=== PATIENT | female | born 1950 | race Caucasian/White ===

== ENCOUNTER 2016-10-01 14:00 | Outpatient (CLI) | payer BC | END 2016-10-01 18:10 | disposition home or self-care (01) | LOC: SMA 14:00 | PROVIDERS: ATTEND Obstetrics & Gynecology Gynecology | DX: R92.1 Mammographic calcification found on diagnostic imaging of breast (principal) | CPT/HCPCS: 77051; G0206 ==

== ENCOUNTER 2017-02-02 22:10 | Emergency (ER) | payer BC, OTHER ==
[~2017-02-02] VITALS: Ht 165.1 cm; Wt 57.6 kg
[2017-02-02 22:10] VITALS: BP_SYST 134
--- NOTE | 2017-02-02 22:10 | NUR ---
PT IN WAITING ROOM AWAITING AVAILABLE BED. STABLE.
--- NOTE | 2017-02-02 23:42 | NUR ---
Patient to ER bed 4 to gown for evaluation. Side rails up. Report given to ARIAN ALONZO.
--- NOTE | 2017-02-02 23:50 | NUR ---
Pt brought in by friend in stable condition. Pt stated that she was bit by a stray cat on left index finger. Pt stated that she is worried about severe infection. Pt stated that she spoke w/ her vet and was advised to come to the ER to get wound checked out. Pt present w/ a 1/2 cm superficial cut to left index finger, no punture noted. No acute distress noted at this time, will continue to monitor
--- NOTE | 2017-02-03 00:04 | NUR ---
ER at bedside examining patient.
[2017-02-03 00:12] VITALS: BP_SYST 134
--- NOTE | 2017-02-03 00:12 | NUR ---
Patient given written and verbal discharge instructions and verbalizes understanding. ER MD FORMAN discussed with patient the results and treatment provided. Patient in stable condition. ID arm band removed. Rx of AUGMENTIN given. Patient educated on pain management and to follow up with PMD. Pain Scale 2/10. Opportunity for questions provided and answered.
== END 2017-02-03 00:12 | disposition home or self-care (01) ==
LOC: SED 22:10
DX: S61.251A Open bite of left index finger without damage to nail, initial encounter (principal); Z88.0 Allergy status to penicillin; Z88.5 Allergy status to narcotic agent; W55.01XA Bitten by cat, initial encounter; Y93.89 Activity, other specified; Y92.89 Other specified places as the place of occurrence of the external cause; Y99.8 Other external cause status
CPT/HCPCS: 99283

== ENCOUNTER 2017-02-04 18:52 | Emergency (ER) | payer BC, OTHER ==
[~2017-02-04] VITALS: Ht 165.1 cm; Wt 62.1 kg
[2017-02-04 18:57] VITALS: BP_SYST 135
--- NOTE | 2017-02-04 19:05 | NUR ---
Patient placed to bed. Report recieved from Charles ALONZO. Will assume care at this time.
--- NOTE | 2017-02-04 19:10 | NUR ---
Patient arrived to ED a/o x 4 with c/o ABD pain x 3 day. Patient reports being seen in ED for similar problem and was treated with ABX. Patient discontinued at home ABX because she began to experience nausea as a side effect. Patient reports lower ABD pain 6/10 that has not been relieved. Patient presents with a small 2mm cat bite present to the left second finger. Does not appear in immediate distress at this time. Will continue to monitor.
--- NOTE | 2017-02-04 19:11 | NUR ---
ED FOOD SCIENTIST Mcleod at bedside for medical evaluation.
[2017-02-04] MEDS ORDERED: ONDANSETRON HCL 4 MG/2 ML VIAL IVP ONE (19:45)
[2017-02-04] MEDS ORDERED: NACL 0.9% 1,000 ML IV ONE (19:45)
[2017-02-04] MEDS ORDERED: ONDANSETRON HCL 4 MG/2 ML VIAL ONE (19:56)
[2017-02-04] MEDS ORDERED: cefTRIAXone 1 GM IVPB PREMIX 0 ML IV ONE (19:56)
[2017-02-04 19:59] LABS: BILIRUBIN,URINE NEGATIVE (NEGATIVE); BLOOD, URINE 2+ (NEGATIVE); CLARITY/URINE HAZY (CLEAR); COLOR,URINE YELLOW (YELLOW); GLUCOSE,URINE NEGATIVE (NEGATIVE); KETONES,URINE TRACE (NEGATIVE); LEUKOCYTE ESTERASE ,URINE 1+ (NEGATIVE); NITRITE, URINE NEGATIVE (NEGATIVE); PROTEIN URINE NEGATIVE (NEGATIVE); UROBILINOGEN,URINE 0.2 (0.2-1.0)
--- NOTE | 2017-02-04 20:00 | NUR ---
Patient resting quietly. No acute distress noted. Vital signs within normal range.
--- NOTE | 2017-02-04 20:30 | NUR ---
ED GENERAL [employer]ARD SUPERVISOR M[facility]od at bedside for reassessment.
[2017-02-04 21:01] LABS: BACTERIA,URINE MODERATE /HPF (None Seen); MUCUS,URINE 2+ /LPF (None Seen); WBC,URINE 20-50 /HPF (0-3)
[2017-02-04 21:04] VITALS: BP_SYST 128
--- NOTE | 2017-02-04 21:04 | NUR ---
Patient given written and verbal discharge instructions and verbalizes understanding. ER MD discussed with patient the results and treatment provided. Patient in stable condition. ID arm band removed. IV catheter removed intact and dressing applied, no active bleeding. Rx of bactrim, pyridium and zofran given. Patient educated on pain management and to follow up with PMD. Pain Scale 2/10 tolerable for patient. Opportunity for questions provided and answered.
== END 2017-02-04 21:04 | disposition home or self-care (01) ==
LOC: SED 18:52
DX: N39.0 Urinary tract infection, site not specified (principal); S61.251D Open bite of left index finger without damage to nail, subsequent encounter; Z88.5 Allergy status to narcotic agent; Z88.0 Allergy status to penicillin; W55.01XD Bitten by cat, subsequent encounter
CPT/HCPCS: 36415; 81000; 87040; 87086; 96361; 96374; 99284; J2405; J7030; J0696

== ENCOUNTER 2018-03-23 14:56 | Outpatient (CLI) | payer BC, OTHER | END 2018-03-23 19:23 | disposition home or self-care (01) | LOC: SMA 14:56 | PROVIDERS: ATTEND Obstetrics & Gynecology Gynecology | DX: Z12.31 Encounter for screening mammogram for malignant neoplasm of breast (principal); R92.1 Mammographic calcification found on diagnostic imaging of breast | CPT/HCPCS: 77067 ==